=== PATIENT | female | born 1950 | race Caucasian/White ===

== ENCOUNTER → 2017-08-08 | Outpatient (CLI) | payer MEDICARE ==
[~2017-08-08] MED LIST: AMOX500T PO; ASPI-110 PO; ASPI-146 PO; BIOT5000 PO; BUPR-197 PO; BUPR150T3 PO; BUTA1CAP PO; CALC500T21 PO; CALCTAB19 PO; CLON1 PO; CLON1TAB PO; COMMODE 3-IN-11 MIS; CPMMACHINE; ENOX40IN SQ; FIORINAL2 PO; FLUT50SP EACH NARE; GABA600T PO; LACTCAP8 PO; MAGN400T24 PO; METH5TAB PO; MULT-65 PO; OMEG300C PO; ONDA1TAB17 PO; OXYC15TA PO; OXYC1CAP PO; OXYGEN NAS.CANULA; PRAV40TA2 PO; RED600TA PO; ST J81CH PO; STOO100C PO; TOPA25TA8 PO; WALKER WHEELS/F1 MIS; ZOLE5P IV
== END ==
LOC: CPRE 11:38
PROVIDERS: ATTEND Orthopaedic Surgery
DX: M17.11 Unilateral primary osteoarthritis, right knee (principal); M25.50 Pain in unspecified joint; M79.609 Pain in unspecified limb

== ENCOUNTER 2017-08-24 05:37 | Inpatient (IN) | payer MEDICARE ==
[~2017-08-24] VITALS: Ht 172.7 cm; Wt 60.5 kg
[~2017-08-24 05:37] MED LIST changes: -ASPI-146 PO; -BIOT5000 PO; -BUPR-197 PO; -CALC500T21 PO; -CLON1 PO; -COMMODE 3-IN-11 MIS; -CPMMACHINE; -ENOX40IN SQ; -FIORINAL2 PO; -FLUT50SP EACH NARE; -OXYC15TA PO; -OXYC1CAP PO; -ST J81CH PO; -WALKER WHEELS/F1 MIS
[2017-08-24] MEDS ORDERED: ceFAZolin 2 GM PREMIX 50 ML IV SCH (06:30)
[2017-08-24] MEDS ORDERED: CHLORHEXIDINE GLUCONATE 2 % 1 PACK (2 CLOTHS) TOPICAL PRN (06:30)
[2017-08-24] MEDS ORDERED: SODIUM CHLORID 0.9% 500 ML IV PRN (06:30)
[2017-08-24] MEDS ORDERED: METOPROLOL TARTRATE 25 MG TAB PO PRN (06:30)
[2017-08-24] MEDS ORDERED: POVIDONE IODINE 5% (ANTISEPSIS KIT) 4 APPLICATIONS EACH NARE PRN (06:30)
[2017-08-24] MEDS ORDERED: VANCOMYCIN 1000 MG/NS 250 ML (for <70 kg) IV SCH ×2 (06:30)
[2017-08-24] MEDS ORDERED: INSULIN HUMAN REGULAR 1,000 UNITS/10 ML VIAL SQ PRN (06:30)
[2017-08-24] MEDS ORDERED: LACTATED RINGER'S 1000 ML IV PRN (06:30)
[2017-08-24] MEDS ORDERED: POVIDONE IODINE 7.5% SCRUB 118 ML BOTTLE TOPICAL SCH (06:30)
[2017-08-24] MEDS ORDERED: DEXAMETHASONE SOD PHOS 20 MG/5 ML VIAL IV ONE (06:45)
--- NOTE | 2017-08-24 06:47 | HHI.DCPOC ---
Discharge Care Plan Diagnosis: (1) Status post total knee replacement, right (2) Primary localized osteoarthrosis, lower leg Your Health Problems Are: Difficulty with ADL Goals to Promote Your Health * To prevent worsening of your condition and complications * To maintain your health at the optimal level Directions to Meet Your Goals Take your medications as prescribed Follow your dietary instruction Follow activity as directed Keep your appointments as scheduled Take your immunizations and boosters as scheduled If your symptoms worsen call your PCP, if no PCP go to Urgent Care Center or Emergency Room Smoking is Dangerous to Your Health. Avoid second hand smoke Call the 24-hour hour crisis hotline for domestic abuse at Peter Ramey Aug 24, 2017 06:47
--- NOTE | 2017-08-24 06:48 | HHI.FF ---
Face to Face Verification Diagnosis: (1) Primary localized osteoarthrosis, lower leg (2) Status post total knee replacement, right Physical Therapy Gait training, Transfer training, bed to chair Knee: Total knee Right LE Weight Bearing: WB as tolerated Right LE Range of Motion: Active ROM Nursing Nursing: Natalie teaching, Dressing changes Dressing Changes: Daily dressing change I have seen patient Aspen Estrada on 08/24/17. My clinical findings support the need for the requested home health care services because: Limited ability to care for self High risk of falls I certify that my clinical findings support that this patient is homebound because: Post-op weakness Unsteady gait/balance Peter Ramey Aug 24, 2017 06:48
[2017-08-24] MEDS ORDERED: CPMMACHINE (06:50)
[2017-08-24] MEDS ORDERED: WALKER WHEELS/F1 MIS (06:50)
[2017-08-24] MEDS ORDERED: COMMODE 3-IN-11 MIS (06:50)
[2017-08-24] MEDS ORDERED: GENTAMICIN SULFATE 80 MG/2 ML VIAL ONE (07:11)
[2017-08-24] MEDS ORDERED: MIDAZOLAM HCL 2 MG/2 ML VIAL ONE (07:55)
[2017-08-24] MEDS ORDERED: FAMOTIDINE 20 MG/2 ML VIAL ONE (07:55)
[2017-08-24] MEDS ORDERED: SODIUM CHLORIDE 0.9% IV SCH ×2 (08:30→11:15)
[2017-08-24] MEDS ORDERED: TRANEXAMIC ACID IV SCH ×2 (08:30→11:15)
[2017-08-24] MEDS ORDERED: ROPIVACAINE PERI-ARTICULAR INJECTION. P-ARTICULR SCH ×5 (08:30)
[2017-08-24] MEDS ORDERED: BUPIVACAINE LIPOSOME PF 1.3% 20 ML VIAL ONE (09:44)
[2017-08-24] MEDS ORDERED: PROPOFOL 200 MG/20 ML AMP ONE (10:04)
[2017-08-24] MEDS: SODIUM CHLOR 0.9% 1000 ML INJ 1,000 ML IV SCH ×2 (10:10→19:57)
[2017-08-24] MEDS ORDERED: diphenhydrAMINE HCL 50 MG/ML VIAL IV PRN (10:15)
[2017-08-24] MEDS ORDERED: ZOLPIDEM TARTRATE 5 MG TAB PO PRN (10:15)
[2017-08-24] MEDS ORDERED: MAGNESIUM HYDROXIDE SUSP 30 ML CUP PO PRN (10:15)
[2017-08-24] MEDS ORDERED: ALUMINUM/MAGNESIUM/SIMETH 30 ML CUP PO PRN (10:15)
[2017-08-24] MEDS ORDERED: NALOXONE HCL 0.4 MG/ML AMP IV PRN (10:15)
[2017-08-24] MEDS ORDERED: BISACODYL 10 MG SUPP RECTAL PRN (10:15)
[2017-08-24] MEDS ORDERED: ONDANSETRON HCL 4 MG/2 ML VIAL IVP PRN (10:15)
[2017-08-24] MEDS ORDERED: Post-op Orders (for Pharmacy) MISC XX ONE (10:15)
[2017-08-24] MEDS ORDERED: SODIUM CHLORIDE 0.9% FLUSH 5 ML FLUSH IVF PRN (10:15)
[2017-08-24] MEDS ORDERED: OXYC1CAP PO (10:24)
[2017-08-24] MEDS ORDERED: ENOX40IN SQ (10:24)
[2017-08-24] MEDS ORDERED: ASPI-146 PO (10:24)
--- NOTE | 2017-08-24 10:27 | PD.OP ---
cc: Adrián Manzanares MD Operative Report Date of Surgery: Aug 24, 2017 Preoperative Diagnosis: Right knee severe osteoarthritis Postoperative Diagnosis: Same Procedure: Right total knee arthroplasty Anesthesia: Adductor canal block and general Surgeon: Adrián Manzanares Director Of Instrumental Music(s): SHERWIN Medrano The surgical procedure was assisted by my Advanced Registered Nurse Practitioner. My BOWLING ALLEY OPERATOR presence was necessary throughout this case for the manipulation and positioning of the surgical extremity. My BOWLING ALLEY OPERATOR was assisting me throughout the duration of this procedure. The skill set of an Advance Registered Nurse Practitioner was medically necessary to complete this procedure. During the surgical case, the surgical supplies sterilizer was working at the back table and the Advance Registered Nurse Practitioner was directly assisting me. Operation and Findings: IMPLANTS: DePuy Attune: Patella: size 35. Femur, posterior stabilized size 7. Tibia, rotating platform size 5. Tibial insert, rotating platform, posterior stabilized size 5 mm thickness. ESTIMATED BLOOD LOSS: 150 cc TOURNIQUET TIME: 46 minutes at 250 mmHg pressure. JUSTIFICATION FOR PROCEDURE: The patient has end-stage osteoarthritis to the knee. There is an attached conservative measures pathway form in the chart that describes the nonoperative measures that were undertaken prior to consideration of surgical management. The patient understood the risks and benefits of surgical management. See my office notes for further details PROCEDURE: The patient was brought back to the operative theatre. Adequate anesthesia was obtained. The patient received intravenous vancomycin and Ancef. The lower extremity was prepped and draped in the usual sterile fashion.The leg was exsanguinated, the tourniquet was raised. A standard anterior incision was performed followed by medial parapatellar arthrotomy was performed. End-stage arthritis was identified. Osteotomy of the patella was performed. We drilled holes for the patella. We trialed the patella component. We placed an intramedullary guide into the distal femur. We ultimately resected 14 mm off of the distal femur in 5 degrees of valgus. The remnants of the ACL and PCL were resected. Osteotomy of the proximal tibia was performed, resecting 5 mm off of the medial side. This was done with 3 degrees of posterior slope using an extramedullary guide. The distal end of the guide was placed in the mid aspect of the ankle. The femur was sized, and four chamfer cuts were completed in 3 of external rotation. We then cut the central box in the distal femur to replace the PCL. We resected the remnants of the menisci and removed osteophytes off of the femur and tibia. We then trialed the knee. We punched the tibia for the keel, and then used standard technique to cement in components. Excess cement was removed. We trialed the knee again and the final polyethylene thickness was chosen to provide extension to 0 degrees, and flexion of 140 degrees to gravity. The ligaments were appropriately balanced. Lateral release was necessary to obtain excellent patellofemoral tracking. The tourniquet was released and adequate hemostasis was obtained. An intra- articular injection of a ropivacaine cocktail was injected. The posterior knee was inspected for excess cement, which was removed. The final polyethylene was put into position after thorough irrigation. We then closed deep fascia with a #2 Stratafix followed by skin with 2-0 Vicryl followed by jacquelin. Postop plan is to weight-bear as tolerated. DVT prophylaxis will be performed with Marleen, YEE villalba, early mobilization, and Lovenox followed by aspirin. Adrián Manzanares MD Aug 24, 2017 10:27
[2017-08-24] MEDS ORDERED: HYDROmorphone HCL PF 1 MG/ML VIAL IV PUSH PRN (10:30)
[2017-08-24] MEDS ORDERED: DO NOT ADM ANY ANTICOAGULANT DRUGS PRN (10:37)
[2017-08-24] MEDS ORDERED: *HYDROmorphone PF 1 MG VIAL PERIprocedural Use ONLY ONE ×3 (10:45→11:24)
[2017-08-24] MEDS ORDERED: *MEPERIDINE 25 MG INJ VIAL PERIprocedural Use ONLY ONE (10:49)
--- NOTE | 2017-08-24 11:05 | RADRPT ---
EXAM DATE/TIME: 08/24/2017 10:52 [facility] COMPARISON: No previous studies available for comparison. INDICATIONS : Post op right total knee. MEDICAL HISTORY : Cardiovascular disease. SURGICAL HISTORY : Fusion, cervical. ENCOUNTER: Initial ACUITY: 1 day PAIN SCORE: 0/10 LOCATION: Right Knee FINDINGS: Total knee arthroplasty is present. The hardware is intact. Alignment is anatomic. Skin jacquelin are p resent ventrally. CONCLUSION: Satisfactory appearance post right TKA Finesse Elliott MD on August 24, 2017 at 11:03 Board Certified Radiologist. This report was verified electronically.
[2017-08-24] MEDS ORDERED: PILL SPLITTER OTHER PRN (11:30)
[2017-08-24] MEDS ORDERED: ACETAMIN 325 MG/BUTALBITAL 50 MG/CAFFEINE 40 MG TAB PO PRN (11:45)
[2017-08-24] MEDS ORDERED: PROPOFOL 200 MG/20 ML AMP IV ONE (12:00)
--- NOTE | 2017-08-24 13:48 | PD.CONS ---
HPI Service [facility] Hospitalists Consult Requested By Primary Care Physician Cecy Washington MD Diagnoses: History of Present Illness Pt is 67 yo female with OA right knee. She was admitted today for right tka. She is seen in her room after the surgery. She is doing well and no cp or sob. She is already oob with PT to the chair. 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 Hx of endocarditis, subacute Hyperlipidemia Mitral regurg 2D echo (10/2014) --> EF 62%, moderate mitral annular calcification and trivial to mild tricuspid regurgitation Cervical fusion Bilateral shoulder surgeries Mitral valve replacement with a porcine valve in 2006 Right hip replacement Left knee surgery x 8 Reported Medications Reported Gabapentin 600 Mg Tab 300 Mg PO HS Magnesium (Magnesium Oxide) 400 Mg Tablet 400 Mg PO DAILY Probiotic (Lactobacillus Acidophilus) 10 Billion Cell Cap 1 Cap PO DAILY Stool Softener (Docusate Sodium) 100 Mg Cap 3 Cap PO DAILY Amoxicillin 500 Mg Tab 500 Mg PO DAILY PRN Topamax (Topiramate) 25 Mg Tab 25 Mg PO HS Oxygen (O2) (Miscellaneous Medication) Inha Liter WENCESLAO.CANULA BID PRN Oxygen Concentrator Portable Gaseous 2 L/min via Nasal Canula Continuous For 99 months Fioricet (Yoehoeuhuc-Aqmrmrjktprhu-Wvzyqdlh) 50-300-40 Mg Cap 1 Cap PO Q4H PRN Pravastatin 40 Mg Tab 40 Mg PO DAILY Bupropion HCl ER 24 HR (Bupropion HCl) 150 Mg Tab 150 Mg PO DAILY Red Yeast Rice (Red Yeast Rice Extract) 600 Mg Tab 1,200 Mg PO DAILY [place]-3 Krill Oil 300 mg (Krill Oil) 300 Mg-90 Mg (27 Mg-45 Mg) Cap 1 Cap PO DAILY Multi-Vitamin Daily (Multiple Vitamin) 1 Tab Tab 1 Tab PO DAILY Calcium 600+D 200 (Calcium Carbonate-Vitamin D) 600-200 Mg-Unit Tab 1 Tab PO DAILY Reclast Inj (Zoledronic Acid) 5 Mg/100 Ml Inj 5 Mg IV Q365D Aspirin 81 (Aspirin) 81 Mg Tabdr 81 Mg PO DAILY Ondansetron (Ondansetron HCl) 8 Mg Tab 8 Mg PO TID PRN Methadone (Methadone HCl) 5 Mg Tab 2.5 Mg PO BID Clonazepam 1 Mg Tab 1 Mg PO HS Allergies: Coded Allergies: acetaminophen (Unverified Allergy, Severe, Liver Failure, 08/24/17) fentanyl (Unverified Allergy, Severe, 08/24/17) WENT INTO AN OVERDOSE morphine (Unverified Allergy, Severe, 08/24/17) Uncoded Allergies: antihistamine (Adverse Reaction, Severe, 03/31/15) BECAME VERY NERVOUS JITTERY Family History Mother in her 80's of natural causes Father with hx of cardiac issues, skin cancer and prostate cancer Sister at 48 from [place] Brother at 44 from [facility] Social History Remote hx of tobacco use, smoked 1ppd x 12 years, quit over 30 years ago Rare alcohol use Denies any hx of illicit drug use Physical Exam Vital Signs in chair heart reg lung cta abd s/nt ext no pitting Vital Signs Date Time Temp Pulse Resp B/P (MAP) Pulse Ox O2 Delivery O2 Flow Rate FiO2 08/24/17 13:00 80 16 101/54 (70) 99 Nasal Cannula 2 08/24/17 12:00 74 16 104/55 (71) 98 Nasal Cannula 2 08/24/17 11:45 76 16 105/58 (74) 97 Nasal Cannula 2 08/24/17 11:30 68 16 98/54 (69) 97 Nasal Cannula 2 08/24/17 11:15 70 16 100/54 (69) 97 Nasal Cannula 2 08/24/17 11:00 78 16 105/56 (72) 98 Nasal Cannula 2 08/24/17 10:45 74 16 107/59 (75) 100 Nasal Cannula 2 08/24/17 10:37 97.4 70 16 96/51 (66) 100 Nasal Cannula 2 08/24/17 07:08 98.2 71 16 127/72 (90) 99 Assessment and Plan Problem List: (1) Status post total knee replacement, right ICD Codes: Z96.651 - Presence of right artificial knee joint Plan: 1. right tka 08/24 2. chronic pain/narcotic use daily PT IS dvt prophylaxis po and iv pain meds ordered. monitor for hypotension. this was a problem last admission. plan for hhc/pt (2) Chronic pain Status: Chronic (3) Hypothyroidism ICD Codes: E03.9 - Hypothyroidism Status: Chronic Fran Morrow MD Aug 24, 2017 13:48
[2017-08-24 16:13] VITALS: O2SAT 98
[2017-08-24 17:57] VITALS: BP 97/57; PULSE 67; RESP 17; TEMP 95.8; O2SAT 97
[2017-08-24 19:00] VITALS: BP 99/51; PULSE 77; RESP 17; TEMP 97.4; O2SAT 99
[2017-08-24] MEDS: SODIUM CHLORIDE 0.9% FLUSH 5 ML FLUSH IVF SCH (19:57)
[2017-08-24] MEDS: clonazePAM 1 MG TAB PO SCH ×2 (19:58→23:24)
[2017-08-24] MEDS ORDERED: METHADONE HCL 10 MG TAB PO SCH (21:00)
[2017-08-24] MEDS ORDERED: GABAPENTIN 300 MG CAP PO SCH (21:00)
[2017-08-24] MEDS ORDERED: TOPIRAMATE 25 MG TAB PO SCH (21:00)
[2017-08-24 21:36] VITALS: O2SAT 98
[2017-08-25] VITALS: BP 96/50; PULSE 81; RESP 16; TEMP 96; O2SAT 98
[2017-08-25] MEDS: SODIUM CHLOR 0.9% 1000 ML INJ 1,000 ML IV SCH (03:41)
[2017-08-25 04:00] VITALS: BP 104/43; PULSE 86; RESP 17; TEMP 98.1; O2SAT 93
[2017-08-25] MEDS ORDERED: FIORINAL2 PO (06:00)
[2017-08-25] MEDS ORDERED: ASPIRIN 325 MG/CAFFEINE 40 MG/BUTALBITAL 50 MG CAP PO PRN (06:30)
[2017-08-25] MEDS ORDERED: DEXAMETHASONE SOD PHOS 20 MG/5 ML VIAL IV ONE (07:45)
[2017-08-25 08:00] VITALS: BP 110/50; PULSE 95; RESP 18; TEMP 99.1; O2SAT 96
[2017-08-25] MEDS: SODIUM CHLORIDE 0.9% FLUSH 5 ML FLUSH IVF SCH (08:02)
[2017-08-25 08:15] LABS: HEMATOCRIT 28.5 % (35.0-46.0); MEAN CORPUSCULAR HEMOGLOBIN 29.7 PG (27.0-34.0); MEAN CORPUSCULAR HGB CONC 34.1 % (32.0-36.0); PLATELET COUNT 146 TH/MM3 (150-450); RED BLOOD COUNT 3.27 MIL/MM3 (4.00-5.30); RED CELL DISTRIBUTION WIDTH 12.6 % (11.6-17.2); REVIEW FLAG FINAL; WHITE BLOOD COUNT 8.4 TH/MM3 (4.0-11.0)
[2017-08-25] MEDS ORDERED: ENOXAPARIN SODIUM 40 MG/0.4 ML SYRINGE SQ SCH (09:00)
[2017-08-25] MEDS ORDERED: PRAVASTATIN SOD 40 MG TAB PO SCH ×2 (09:00→21:00)
[2017-08-25] MEDS ORDERED: buPROPion HCL 150 MG SUSTAINED RELEASE TAB PO SCH (09:00)
[2017-08-25 12:00] VITALS: BP 105/56; PULSE 82; RESP 18; TEMP 98; O2SAT 97
--- NOTE | 2017-08-25 12:53 | PD.ORT.PN ---
Subjective Post Op Day #: 1 Subjective Remarks Patient is OOB in chair with c/o calf pain and right knee pain. Patient is ambulatory. Patient wants to go home today if possible. Objective Vitals Vital Signs Date Time Temp Pulse Resp B/P (MAP) Pulse Ox O2 Delivery O2 Flow Rate FiO2 08/25/17 08:00 99.1 95 18 110/50 (70) 96 08/25/17 04:00 98.1 86 17 104/43 (63) 93 08/25/17 00:00 96.0 81 16 96/50 (65) 98 08/24/17 21:36 98 Nasal Cannula 1.00 08/24/17 19:00 97.4 77 17 99/51 (67) 99 08/24/17 17:57 95.8 67 17 97/57 (70) 97 08/24/17 16:13 98 Nasal Cannula 1.00 08/24/17 13:00 80 16 101/54 (70) 99 Nasal Cannula 2 I/O 08/24/17 08/24/17 08/24/17 08/25/17 08/25/17 08/25/17 07:00 15:00 23:00 07:00 15:00 23:00 Intake Total 1250 ml 580 ml 818 ml 100 ml Output Total 50 ml Balance 1200 ml 580 ml 818 ml 100 ml Intake Oral 480 ml 240 ml IV Total 50 ml 100 ml 578 ml 100 ml Other 1200 ml Output Estimated Blood Loss 50 ml # Voids 1 0 3 # Bowel Movements 0 0 Result Diagram: 08/25/17 0736 Procedures Right TKA Objective Remarks Patient's dressing was changed with scant serosanguineous drainage. Incision is well approximated with surgical clips intact. No redness or s/s of infection. Calf is swollen and tender. + SILT. EHL/TA/G intact. Assessment & Plan Ortho Post Op Day #: 1 Problem List: Assessment and Plan POD #1: Right TKA 1. WBAT RLE 2. Lovenox followed by ASA for DVT prophylaxis 3. Ice to the right knee PRN 4. Stable for discharge home today with home health. 5. F/U with Dr. Manzanares or SHERWIN Herr as previously scheduled. Peter Ramey Aug 25, 2017 12:53
--- NOTE | 2017-08-25 13:47 | RADRPT ---
EXAM DATE/TIME: 08/25/2017 13:13 [facility] COMPARISON: No previous studies available for comparison. INDICATIONS : Right leg swelling and pain. MEDICAL HISTORY : Hypothyroidism. Hypercholesterolemia. Rheumatoid arthritis. Seizures. Migraines. Dyspnea. SURGICAL HISTORY : Mitral valve replacement. Left knee surgery. ENCOUNTER: Initial ACUITY: 1 day PAIN SCORE: 8/10 LOCATION: Right leg TECHNIQUE: Venous ultrasound of the leg was performed from the inguinal ligament to the proximal calf. Real-sonia e, color Doppler and spectral tracing, compression and augmentation techniques were used. FINDINGS: There is normal compressibility of the deep venous system from the inguinal region to the proximal ca lf. No echogenic clot is seen in the lumen of the common femoral, femoral, popliteal, and posterior tibial veins. There is a normal response of the venous system to proximal and distal augmentation an d respiration. CONCLUSION: Negative exam with no evidence of deep venous thrombosis. Gian Fuller MD on August 25, 2017 at 13:45 Board Certified Radiologist. This report was verified electronically.
[2017-08-25] MEDS ORDERED: DOCUSATE SODIUM 100 MG CAP PO SCH (21:00)
[2017-08-25] MEDS ORDERED: MULTIVITAMINS/MINERALS THERAPEUTIC TAB PO SCH (21:00)
[2017-08-25] MEDS ORDERED: METHADONE HCL 10 MG TAB PO SCH (21:00)
--- NOTE | 2017-08-28 16:49 | HHI.DS ---
Discharge Summary Admission Date Aug 24, 2017 at 05:37 Discharge Date: Aug 25, 2017 Admitting Diagnosis Primary localized OA, lower leg Status post total knee replacement, right Diagnosis: (1) Status post total knee replacement, right Diagnosis: Principal ICD Codes: Z96.651 - Presence of right artificial knee joint (2) Primary localized osteoarthrosis, lower leg Diagnosis: Principal ICD Codes: M17.10 - Unilateral primary osteoarthritis, unspecified knee Procedures Right TKA Brief History This is a 67 year old female patient with severe OA of the right knee CBC/BMP: 08/25/17 0736 PE at Discharge Patient's dressing was changed with scant serosanguineous drainage. Incision is well approximated with surgical clips intact. No redness or s/s of infection. Calf is swollen and tender. + SILT. EHL/TA/G intact. Hospital Course The patient was admitted to the hospital with severe right knee OA to have a right TKA. The patient's surgery went well without complication. The patient is WBAT on the RLE. The patient is on a regular diet. The patient was placed on Lovenox followed by ASA for DVT prophylaxis. The patient was discharged home with home health and will f/u with Dr. Manzanares or SHERWIN Herr as previously scheduled. Pt Condition on Discharge: Stable Discharge Disposition: Disch w/ Home Health Serv Discharge Instructions Diet Instructions: As Tolerated, No Restrictions Activities You Can Perform: Weight Bearing as Kasey Activities to Avoid: Strenuous Activity Follow up Referrals: Orthopedics with Adrián Manzanares MD New Medications: Aspirin DR (Ecotrin Regular Strength) 325 Mg Tabdr 325 MG PO DAILY for Prevent Blood Clot, #30 TAB 0 Refills Start Aspirin after Lovenox is completed. Commode 3-in-1 (Commode 3-in-1) 1 Mis Mis EA .ROUTE DIRECTED, #1 0 Refills CPM-Continuous Passive Motion Machine (CPM-Continuous Passive Motion Machine) 1 Ea Device EA .ROUTE DIRECTED, #1 0 Refills Enoxaparin Inj (Enoxaparin Inj) 40 Mg/0.4 Ml Syr 40 MG SQ DAILY for Blood Clot Prevention for 10 Days, #10 SYRINGE 0 Refills Start Aspirin after Lovenox is completed. Oxycodone (Oxycodone) 5 Mg Cap 1-2 TAB PO Q4H PRN for PAIN, #60 CAP 0 Refills Walker with Front Wheels (Walker with Front Wheels) 1 Mis Mis EA .ROUTE DIRECTED, #1 0 Refills Continued Medications: Amoxicillin (Amoxicillin) 500 Mg Tab 500 MG PO DAILY PRN for PRIOR TO DENTAL PROCEDURES, TAB 0 Refills Bupropion HCl ER 24 HR (Bupropion HCl ER 24 HR) 150 Mg Tab 150 MG PO DAILY for Control Depression, TAB 0 Refills Buptncvred-Dyrazsdnfutvc-Nqndpmiu (Fioricet) 50-300-40 Mg Cap 1 CAP PO Q4H PRN for HEADACHE, CAP 0 Refills Calcium Carbonate-Vitamin D (Calcium 600+D 200) 600-200 Mg-Unit Tab 1 TAB PO DAILY for Nutritional Supplement, TAB 0 Refills Clonazepam (Clonazepam) 1 Mg Tab 1 MG PO HS, #90 TAB 0 Refills Docusate Sodium (Stool Softener) 100 Mg Cap 3 CAP PO DAILY Lactobacillus Acidophilus (Probiotic) 10 Billion Cell Cap 1 CAP PO DAILY for Nutritional Supplement, #90 CAP 0 Refills Magnesium Oxide (Magnesium) 400 Mg Tablet 400 MG PO DAILY Methadone (Methadone) 5 Mg Tab 2.5 MG PO BID, TAB 0 Refills Multiple Vitamin (Multi-Vitamin Daily) 1 Tab Tab 1 TAB PO DAILY for Nutritional Supplement, TAB 0 Refills Ondansetron (Ondansetron) 8 Mg Tab 8 MG PO TID PRN for NAUSEA, TAB 0 Refills Pravastatin (Pravastatin) 40 Mg Tab 40 MG PO DAILY for Cholesterol Management, #30 TAB 0 Refills Red Yeast Rice Extract (Red Yeast Rice) 600 Mg Tab 1200 MG PO DAILY Topiramate (Topamax) 25 Mg Tab 25 MG PO HS for Control Seizures, #60 TAB 0 Refills Zoledronic Acid Inj (Reclast Inj) 5 Mg/100 Ml Inj 5 MG IV Q365D, #1 BAG 0 Refills Discontinued Medications: Aspirin DR (Aspirin 81) 81 Mg Tabdr 81 MG PO DAILY, TAB 0 Refills Krill Oil ([place]-3 Krill Oil 300 mg) 300 Mg-90 Mg (27 Mg-45 Mg) Cap 1 CAP PO DAILY Peter Ramey Aug 28, 2017 16:49
== END 2017-08-25 16:25 | disposition home health service (06) | DRG 470 ==
LOC: HSDI 05:37 → N06A 13:24
PROVIDERS: ADMIT Orthopaedic Surgery; ATTEND Orthopaedic Surgery
PROC: 0SRC0J9 Replacement of Right Knee Joint with Synthetic Substitute, Cemented, Open Approach (ICD-10-PCS; principal; 2017-08-24 07:57)
DX: M17.11 Unilateral primary osteoarthritis, right knee (principal); E03.9 Hypothyroidism, unspecified; E78.5 Hyperlipidemia, unspecified; G89.29 Other chronic pain; I34.0 Nonrheumatic mitral (valve) insufficiency; M81.0 Age-related osteoporosis without current pathological fracture; Z87.891 Personal history of nicotine dependence; H91.92 Unspecified hearing loss, left ear; Z95.2 Presence of prosthetic heart valve; Z96.641 Presence of right artificial hip joint
CPT/HCPCS: 73560; 85027; 86850; 86900; 86901; 93971; 94150; C1776; C9290; J0690; J0735; J1100; J1170; J1580; J1650; J1885; J2175; J2250; J2795; J3010; J3370; J7030; J7050; J7120; L1830

== ENCOUNTER 2017-08-27 20:13 | Emergency (ER) | payer MEDICARE ==
[~2017-08-27] VITALS: Ht 172.7 cm; Wt 76.4 kg
[~2017-08-27 20:13] MED LIST changes: -ASPI-110 PO; +ASPI-146 PO; +COMMODE 3-IN-11 MIS; +CPMMACHINE; +ENOX40IN SQ; +FIORINAL2 PO; -OMEG300C PO; +OXYC1CAP PO; +WALKER WHEELS/F1 MIS
[2017-08-27 20:19] VITALS: BP 112/52; PULSE 106; RESP 20; TEMP 98.1; O2SAT 97
--- NOTE | 2017-08-27 20:37 | PD ---
HPI Chief Complaint: Edema Time Seen by Provider: 20:36 Travel History International Travel<30 days: No Contact w/Intl Traveler<30days: No Traveled to known affect area: No History of Present Illness HPI 67-year-old female came to the emergency room with history of right leg pain and swelling status post knee replacement surgery. Patient had a knee replacement done by Dr. Manzanares on the fourth of this month and was discharged home on the fifth. Patient says that the leg was swollen and hurting on the day she was discharge and an ultrasound was done to rule out DVT. She was told there was no blood clot. Patient was discharged home on OxyContin and she says that she's been taking them but it's not helping with the pain. Pain has been persistent. The last pill she took was at 1 PM and she says she is not going to take them anymore since they don't help. Patient has had her left knee replaced in the past. No history of blood clots in the past. Patient is taking Lovenox shots. No history of fever or chills. Blood pressure is slightly on the lower side but patient says that she usually runs low blood pressure. No history of shortness of breath or chest pain. PFSH Past Medical History Narrative Medical List of her past medical, surgical, social and family history is reviewed from the nursing note. Hx Anticoagulant Therapy: Yes (81 MG. ASA DAILY) Arthritis: Yes Asthma: No Autoimmune Disease: No Blood Disorders: No Anxiety: Yes Depression: Yes Heart Rhythm Problems: Yes Cancer: No Cardiovascular Problems: Yes (OPEN HEART WITH VALVE REPLACEMENT) High Cholesterol: Yes Chemotherapy: No Chest Pain: Yes (WITH ENDOCARDITIS) Congestive Heart Failure: No COPD: No Cerebrovascular Accident: No Diabetes: No Diminished Hearing: Yes (Deaf on the left per pt.) Endocrine: No Gastrointestinal Disorders: Yes (CONSTIPATION) GERD: No Glaucoma: No Genitourinary: No Hepatitis: No Hiatal Hernia: No Hypertension: No Immune Disorder: No Implanted Vascular Access Dvce: No Kidney Stones: No Musculoskeletal: Yes (LT KNEE, LUMBAR, CERVICAL) Neurologic: Yes (MIGRAINES, NERVUS INTERMEDIUS NEURALGIA) Psychiatric: No Reproductive: Yes Respiratory: No Migraines: Yes Myocardial Infarction: No Radiation Therapy: No Renal Failure: No Seizures: Yes (UNSURE) Sickle Cell Disease: No Sleep Apnea: No Thyroid Disease: Yes Ulcer: No Menopausal: Yes : 0 Para: 0 Miscarriage: 0 : 0 Past Surgical History Abdominal Surgery: No AICD: No Appendectomy: No Arteriovenous Shunt: No Body Medical Devices: MITRAL VALVE(PIG), CERVICAL HARDWARE Cardiac Surgery: Yes (MITRAL VALVE REPLACEMENT) Cholecystectomy: No Ear Surgery: Yes (X2 TYMPANOPLASTY LEFT EAR) Endocrine Surgery: No Eye Surgery: No Genitourinary Surgery: Yes (URETHRA DILITATION) Gynecologic Surgery: No Insulin Pump: No Joint Replacement: Yes (LEFT KNEE, TOTAL HIP bilateral) Neurologic Surgery: Yes Oral Surgery: Yes (LEFT JAW ARTHOSYTHESIS) Pacemaker: No Thoracic Surgery: No Other Surgery: Yes (MITRAL VALVE REPLACEMENT 2006 "PIG") Social History Alcohol Use: No (Pt denies.) Tobacco Use: No (QUIT 1982.) Substance Use: No Allergies-Medications (Allergen,Severity, Reaction): Coded Allergies: acetaminophen (Unverified Allergy, Severe, Liver Failure, 08/27/17) fentanyl (Unverified Allergy, Severe, 08/27/17) WENT INTO AN OVERDOSE morphine (Unverified Allergy, Severe, 08/27/17) Uncoded Allergies: antihistamine (Adverse Reaction, Severe, 03/31/15) BECAME VERY NERVOUS JITTERY Comments List of her allergies reviewed from the nursing note. Reported Meds & Prescriptions Reported Meds & Active Scripts Active Enoxaparin Inj (Enoxaparin Sodium) 40 Mg/0.4 Ml Syr 40 Mg SQ DAILY 10 Days Start Aspirin after Lovenox is completed. Ecotrin Regular Strength (Aspirin) 325 Mg Tabdr 325 Mg PO DAILY Start Aspirin after Lovenox is completed. Oxycodone (Oxycodone HCl) 5 Mg Cap 1-2 Tab PO Q4H PRN Walker with Front Wheels (Device) 1 Mis Mis Ea .ROUTE DIRECTED CPM-Continuous Passive Motion Machine 1 Ea Device Ea .ROUTE DIRECTED Commode 3-in-1 (Device) 1 Mis Mis Ea .ROUTE DIRECTED Reported Fiorinal (Butalbital/Aspirin/Caffeine) 50-325-40 Mg Cap 2 Cap PO Q4H PRN Do not exceed 6 capsules/day. Gabapentin 600 Mg Tab 300 Mg PO HS Magnesium (Magnesium Oxide) 400 Mg Tablet 400 Mg PO DAILY Probiotic (Lactobacillus Acidophilus) 10 Billion Cell Cap 1 Cap PO DAILY Stool Softener (Docusate Sodium) 100 Mg Cap 3 Cap PO DAILY Amoxicillin 500 Mg Tab 500 Mg PO DAILY PRN Topamax (Topiramate) 25 Mg Tab 25 Mg PO HS Oxygen (O2) (Miscellaneous Medication) Inha Liter WENCESLAO.CANULA BID PRN Oxygen Concentrator Portable Gaseous 2 L/min via Nasal Canula Continuous For 99 months Fioricet (Nxgefwvkkc-Hcbxubsxmsyfq-Qcbnacdl) 50-300-40 Mg Cap 1 Cap PO Q4H PRN Pravastatin 40 Mg Tab 40 Mg PO DAILY Bupropion HCl ER 24 HR (Bupropion HCl) 150 Mg Tab 150 Mg PO DAILY Red Yeast Rice (Red Yeast Rice Extract) 600 Mg Tab 1,200 Mg PO DAILY Multi-Vitamin Daily (Multiple Vitamin) 1 Tab Tab 1 Tab PO DAILY Calcium 600+D 200 (Calcium Carbonate-Vitamin D) 600-200 Mg-Unit Tab 1 Tab PO DAILY Reclast Inj (Zoledronic Acid) 5 Mg/100 Ml Inj 5 Mg IV Q365D Ondansetron (Ondansetron HCl) 8 Mg Tab 8 Mg PO TID PRN Methadone (Methadone HCl) 5 Mg Tab 2.5 Mg PO BID Clonazepam 1 Mg Tab 1 Mg PO HS Narrative Medication List of her home medications reviewed from the nursing note. Review of Systems Except as stated in HPI: all other systems reviewed are Neg Musculoskeletal: Positive: Pain (right leg pain and swelling, status post surgery), Other Physical Exam Narrative GENERAL: Awake, alert, moderate distress SKIN: Focused skin assessment warm/dry. Right leg starting from proximal thigh all the way up to the mid leg is swollen and bruised. No warmth. Tender to touch. The surgical tape is still on and does not look significantly soaked. Some old dried blood underneath can be seen through the tape. HEAD: Atraumatic. Normocephalic. EYES: Pupils equal and round. No scleral icterus. No injection or drainage. ENT: No nasal bleeding or discharge. Mucous membranes pink and moist. NECK: Trachea midline. No JVD. CARDIOVASCULAR: Regular rate and rhythm. No murmur appreciated. RESPIRATORY: No accessory muscle use. Clear to auscultation. Breath sounds equal bilaterally. GASTROINTESTINAL: Abdomen soft, non-tender, nondistended. Hepatic and splenic margins not palpable. MUSCULOSKELETAL: No obvious deformities. No clubbing. No cyanosis. No edema. The leg is swollen on the left side but distal neurovascular capture is intact NEUROLOGICAL: Awake and alert. No obvious cranial nerve deficits. Motor grossly within normal limits. Normal speech. PSYCHIATRIC: Appropriate mood and affect; insight and judgment normal. Data Data Last Documented VS Vital Signs Date Time Temp Pulse Resp B/P (MAP) Pulse Ox O2 Delivery O2 Flow Rate FiO2 08/27/17 22:20 08/27/17 22:04 98.3 104 18 96 Room Air Orders Orders Complete Blood Count With Diff (08/27/17 20:56) Basic Metabolic Panel (Bmp) (08/27/17 20:56) Us Leg Venous Doppler (08/27/17 ) Labs Laboratory Tests Test 08/27/17 21:04 White Blood Count 7.8 TH/MM3 Red Blood Count 2.89 MIL/MM3 Hemoglobin 8.3 GM/DL Hematocrit 25.0 % Mean Corpuscular Volume 86.6 FL Mean Corpuscular Hemoglobin 28.6 PG Mean Corpuscular Hemoglobin Concent 33.1 % Red Cell Distribution Width 12.1 % Platelet Count 174 TH/MM3 Mean Platelet Volume 8.7 FL Neutrophils (%) (Auto) 68.0 % Lymphocytes (%) (Auto) 21.2 % Monocytes (%) (Auto) 9.3 % Eosinophils (%) (Auto) 0.8 % Basophils (%) (Auto) 0.7 % Neutrophils # (Auto) 5.3 TH/MM3 Lymphocytes # (Auto) 1.6 TH/MM3 Monocytes # (Auto) 0.7 TH/MM3 Eosinophils # (Auto) 0.1 TH/MM3 Basophils # (Auto) 0.1 TH/MM3 CBC Comment DIFF FINAL Differential Comment Blood Urea Nitrogen 13 MG/DL Creatinine 0.59 MG/DL Random Glucose 130 MG/DL Calcium Level 8.2 MG/DL Sodium Level 137 MEQ/L Potassium Level 3.6 MEQ/L Chloride Level 102 MEQ/L Carbon Dioxide Level 27.9 MEQ/L Anion Gap 7 MEQ/L Estimat Glomerular Filtration Rate 101 ML/MIN [facility] Medical Decision Making Medical Screen Exam Complete: Yes Emergency Medical Condition: Yes Medical Record Reviewed: Yes Differential Diagnosis Postsurgical swelling, postsurgical pain, DVT Narrative Course 9:48 PM I discussed the case with Dr. Valdez who is on-call for orthopedics. As per her a repeat ultrasound should be done to rule out DVT which was done. Awaiting for the radiologist to give read. Blood test results were done which shows slight anemia. However the anemia is not significant enough where blood transfusion is needed. There is no active bleeding currently. If the official read is negative I'll discharge her home. As per Dr. Valdez patient can be seen outpatient on Tuesday by Dr. Manzanares in his office. Patient has been conveyed about this. She did not want anything for pain medication. Procedures EKG Prior to Arrival: No Physician Communication Physician Communication Dr. Valdez Diagnosis Primary Impression: Postoperative pain Additional Impression: postoperative swelling Referrals: Adrián Manzanares MD 2 days Additional Instructions: Keep the leg elevated above the heart level, apply ice pack on the need to keep the swelling down. Take pain medication as given to you by the surgeon. Return to the ER if the condition worsens or any other new concerns. Follow-up with the orthopedist in his office on Tuesday. Med/Other Pt SpecificInfo: No Change to Meds Disposition: 01 DISCHARGE HOME Condition: Stable Gurmeet Orellana MD Aug 27, 2017 20:37
[2017-08-27 20:58] VITALS: BP 99/46; PULSE 101; RESP 18; TEMP 98.2; O2SAT 97
[2017-08-27 21:08] VITALS: BP 99/46; PULSE 101; RESP 18; TEMP 98.2; O2SAT 97
[2017-08-27 21:09] LABS: AUTOMATED NEUTROPHIL # 5.3 TH/MM3 (1.8-7.7); BASOPHIL # 0.1 TH/MM3 (0-0.2); BASOPHIL % 0.7 % (0.0-2.0); EOSINOPHIL # 0.1 TH/MM3 (0-0.4); EOSINOPHIL % 0.8 % (0.0-4.0); HEMO FLAGS DIFF FINAL; LYMPH % 21.2 % (9.0-44.0); LYMPHOCYTE # 1.6 TH/MM3 (1.0-4.8); MEAN CELL VOLUME 86.6 FL (80.0-100.0); MEAN CORPUSCULAR HEMOGLOBIN 28.6 PG (27.0-34.0); MEAN CORPUSCULAR HGB CONC 33.1 % (32.0-36.0); MONO % 9.3 % (0.0-8.0); PLATELET COUNT 174 TH/MM3 (150-450); RED BLOOD COUNT 2.89 MIL/MM3 (4.00-5.30); RED CELL DISTRIBUTION WIDTH 12.1 % (11.6-17.2); WHITE BLOOD COUNT 7.8 TH/MM3 (4.0-11.0)
[2017-08-27 21:19] LABS: POTASSIUM 3.6 MEQ/L (3.5-5.1)
[2017-08-27 21:22] LABS: BICARBONATE 27.9 MEQ/L (21.0-32.0)
--- NOTE | 2017-08-27 21:56 | RADRPT ---
EXAM DATE/TIME: 08/27/2017 21:29 [facility] COMPARISON: US LEG RIGHT VENOUS DOPPLER, August 25, 2017, 13:13. INDICATIONS : Right leg swelling. MEDICAL HISTORY : Hypercholesterolemia. Hypothyroidism. Rheumatoid arthritis. Seizures. Migraines. Dyspnea. SURGICAL HISTORY : Mitral valve replacement. Left knee surgery. ENCOUNTER: Subsequent ACUITY: 4 - 6 days PAIN SCORE: 10/10 LOCATION: Right leg. TECHNIQUE: Venous ultrasound of the leg was performed from the inguinal ligament to the proximal calf. Real-sonia e, color Doppler and spectral tracing, compression and augmentation techniques were used. FINDINGS: There is normal compressibility of the deep venous system from the inguinal region to the proximal ca lf. No echogenic clot is seen in the lumen of the common femoral, femoral, popliteal, and posterior tibial veins. There is a normal response of the venous system to proximal and distal augmentation an d respiration. CONCLUSION: 1. No evidence for DVT. Michael Dietz MD on August 27, 2017 at 21:54 Board Certified Radiologist. This report was verified electronically.
[2017-08-27 22:04] VITALS: BP 113/60; PULSE 104; RESP 18; TEMP 98.3; O2SAT 96
== END 2017-08-27 22:28 | disposition home or self-care (01) ==
LOC: PHED 20:13
DX: G89.18 Other acute postprocedural pain (principal); M79.604 Pain in right leg; E78.00 Pure hypercholesterolemia, unspecified; Z87.891 Personal history of nicotine dependence; Z96.651 Presence of right artificial knee joint; Z79.82 Long term (current) use of aspirin; Z95.2 Presence of prosthetic heart valve
CPT/HCPCS: 80048; 85025; 93971